=== PATIENT | female | born 2000 | race Two or more races ===

== ENCOUNTER 2022-07-08 19:34 | Emergency (ER) | payer OTHER ==
[~2022-07-08] VITALS: Ht 162.6 cm; Wt 75.9 kg
[2022-07-08 23:07] VITALS: BP 139/90
[2022-07-09] MEDS ORDERED: PERMETHRIN 1% 60 ML LOTION TP ONE (01:00)
== END 2022-07-09 01:55 ==
LOC: EMS 19:36
DX: B85.0 Pediculosis due to Pediculus humanus capitis (principal); F17.210 Nicotine dependence, cigarettes, uncomplicated
CPT/HCPCS: 99283